=== PATIENT | male | born 1980 | race Caucasian/White ===

== ENCOUNTER 2017-05-13 19:56 | Emergency (ER) | payer OTHER ==
[2017-05-13 20:04] VITALS: BP 119/68
[2017-05-13] MEDS ORDERED: ALBUTEROL NEB 2.5 MG/3 ML INH STA (20:13)
--- NOTE | 2017-05-13 20:14 | ED Physician Documentation ---
PD HPI DYSPNEA - Stated complaint Stated Complaint: COUGH/CONGESTION - Chief complaint Chief Complaint: Resp - History obtained from History obtained from: Patient - History of Present Illness Timing - onset: Other (Sick for 10 days with coughing, Productive of green sputum with low-grade fevers and body aches, also nasal congestion. Feels like prior episodes of pneumonia.) Review of Systems Constitutional: reports: Fever, Chills, Fatigue. denies: Myalgias Nose: reports: Rhinorrhea / runny nose, Congestion Throat: reports: Sore throat Respiratory: reports: Dyspnea, Cough GI: denies: Abdominal Pain PD PAST MEDICAL HISTORY - Past Medical History Past Medical History: Yes Psych: Other Other Past Medical History: TBI - Past Surgical History Past Surgical History: No Neuro: Other - Present Medications Home Medications: Ambulatory Orders Medication Instructions Recorded Confirmed Albuterol Sulfate [Proventil Hfa 1 - 2 puffs IH Q4H PRN #1 05/13/17 Inhaler] hfa.aer.ad guaiFENesin/CODEINE [Robitussin AC] 5 - 10 ml PO Q6H PRN #120 ml 05/13/17 predniSONE [Deltasone] 60 mg PO DAILY 5 Days tablet 05/13/17 - Allergies Allergies/Adverse Reactions: Allergies Allergy/AdvReac Type Severity Reaction Status Date / Time No Known Drug Allergies Allergy Verified 05/13/17 20:01 - Social History Does the pt smoke?: No Smoking Status: Never smoker Does the pt drink ETOH?: Yes Does the pt have substance abuse?: No - Immunizations Immunizations are current?: Yes PD ED PE NORMAL - Vitals Vital signs reviewed: Yes - General General: Alert and oriented X 3, No acute distress - HEENT HEENT: PERRL, EOMI, Ears normal, Moist mucous membranes, Pharynx benign - Neck Neck: Supple, no meningeal sign, No bony TTP - Cardiac Cardiac: RRR, No murmur - Respiratory Respiratory: Other (Significantly diminished throughout, nonlabored) - Abdomen Abdomen: Non tender - Derm Derm: No rash - Psych Psych: Normal mood, Normal affect Results - Vitals Vitals: Vital Signs - 24 hr 05/13/17 05/13/17 20:00 20:20 Temperature 37.4 C Heart Rate 70 70 Respiratory 20 18 Rate Blood Pressure 119/68 O2 Saturation 97 Oxygen O2 Source Room air - Rads (name of study) 2v chest Radiology: EMP read contemporaneously (normal) PD MEDICAL DECISION MAKING - ED course ED course: Healthy 36-year-old gentleman with viral symptoms with Predominant cough for a week, clear chest x-ray. Lungs initially very diminished on examination but improved after albuterol neb here with better air movement and still no focal findings. Departure - Departure Disposition: 01 Home, Self Care Clinical Impression: Viral bronchitis Condition: Good Record reviewed to determine appropriate education?: Yes Instructions: ED Upper Resp Infec No Abx Tx Prescriptions: Albuterol Sulfate [Proventil Hfa Inhaler] 1 - 2 puffs IH Q4H PRN #1 hfa.[email or web address].ad PRN Reason: Cough guaiFENesin/CODEINE [Robitussin AC] 5 - 10 ml PO Q6H PRN #120 ml PRN Reason: Cough predniSONE [Deltasone] 60 mg PO DAILY 5 Days tablet Comments: Call your doctor to arrange a follow-up appointment, make the next available appointment. In the interim, return anytime if worse or if new symptoms develop.
--- NOTE | 2017-05-13 20:36 | XRAY Preliminary Report ---
Exam: XR CHEST 2 VIEW PA/LAT IMPRESSION: No acute intrathoracic plain film abnormality. [facility] SITE ID: [id number]
--- NOTE | 2017-05-13 20:37 | XRAY Report ---
EXAM: CHEST RADIOGRAPHY EXAM DATE: 05/13/2017 08:22 PM. CLINICAL HISTORY: Cough. COMPARISON: None. TECHNIQUE: 2 views. FINDINGS: Lungs/Pleura: No focal opacities evident. No pleural effusion. No pneumothorax. Normal volumes. Mediastinum: Heart and mediastinal contours are unremarkable. Other: None. IMPRESSION: No acute intrathoracic plain film abnormality. [facility] Referring Provider Line: [phone] SITE ID: [id number]
[2017-05-13] MEDS ORDERED: guaiFENesin/CODEINE 5 ML UDC PO STA (20:49)
[2017-05-13] MEDS ORDERED: predniSONE 20 MG TABLET PO STA (20:49)
== END 2017-05-13 20:55 | disposition home or self-care (01) ==
LOC: ED 19:56
DX: J20.8 Acute bronchitis due to other specified organisms (principal)
CPT/HCPCS: 71020; 94640; 99283; 99284; A9270; J7512; J7613

== ENCOUNTER 2019-01-20 10:03 | Emergency (ER) | payer OTHER ==
--- NOTE | 2019-01-20 10:21 | ED Physician Documentation ---
History of Present Illness - Stated complaint Stated Complaint: FEVER - Chief complaint Chief Complaint: Resp - History obtained from History obtained from: Patient, Family - History of Present Illness Timing: How many days ago (4) Pain level max: 6 Pain level now: 0 - Additonal information Additional information: 38-year-old male presents to the emergency department stating that he was diagnosed with pneumonia in [place] on Wednesday. Started on azithromycin and Augmentin. Told he should follow-up within 24 hours. Unable to see his doctor today. Came here for evaluation. He states that his oxygen levels were around 90% when he was in [place]. States he has pneumonia 1-2 times per year. He states that he is feeling much better today. Review of Systems Constitutional: reports: Fever Respiratory: reports: Cough GI: denies: Abdominal Pain, Nausea, Vomiting, Diarrhea Skin: denies: Rash Musculoskeletal: denies: Neck pain, Back pain Neurologic: denies: Headache PD PAST MEDICAL HISTORY - Past Medical History Past Medical History: No Psych: Other - Past Surgical History Past Surgical History: No Neuro: Other - Present Medications Home Medications: Ambulatory Orders Medication Instructions Recorded Confirmed Amox/Clav 875/125 [Augmentin 01/20/19 875/125] Azithromycin 250 mg PO 01/20/19 - Allergies Allergies/Adverse Reactions: Allergies Allergy/AdvReac Type Severity Reaction Status Date / Time No Known Drug Allergies Allergy Verified 01/20/19 10:10 - Social History Does the pt smoke?: No Smoking Status: Never smoker Does the pt drink ETOH?: Yes Does the pt have substance abuse?: No - Immunizations Immunizations are current?: Yes PD ED PE NORMAL - Vitals Vital signs reviewed: Yes - General General: Alert and oriented X 3, No acute distress, Well developed/nourished - HEENT HEENT: Moist mucous membranes - Neck Neck: Supple, no meningeal sign - Cardiac Cardiac: RRR, Strong equal pulses - Respiratory Respiratory: No respiratory distress, Clear bilaterally - Abdomen Abdomen: Soft, Non tender, Non distended - Derm Derm: Warm and dry - Neuro Neuro: Alert and oriented X 3 - Psych Psych: Normal mood, Normal affect Results - Vitals Vitals: Vital Signs - 24 hr 01/20/19 01/20/19 10:06 11:33 Temperature 36.7 C Heart Rate 62 80 Respiratory 20 16 Rate Blood Pressure 111/66 132/74 H O2 Saturation 97 100 Oxygen O2 Source Room air - Rads (name of study) cxr Radiology: Prelim report reviewed, EMP read contemporaneously, See rad report (Bilateral patchy infiltrates. This can be seen in pneumonia, including atypical pneumonia. Follow-up to resolution suggested. ) PD MEDICAL DECISION MAKING - ED course Complexity details: reviewed results, re-evaluated patient, considered differential, d/w patient, d/w family ED course: 38-year-old male with bilateral pneumonia. He is improving on antibiotics. No hypoxia. No respiratory distress. We will continue his current treatment plan and follow-up with his doctor. Patient counseled regarding signs and symptoms for which I believe and urgent re-evaluation would be necessary. Patient with good understanding of and agreement to plan and is comfortable going home at this time This document was made in part using voice recognition software. While efforts are made to proofread this document, sound alike and grammatical errors may occur. Departure - Departure Disposition: 01 Home, Self Care Clinical Impression: Pneumonia Qualifiers: Pneumonia type: due to unspecified organism Laterality: bilateral Lung location: unspecified part of lung Qualified Code(s): J18.9 - Pneumonia, unspecified organism Condition: Good Instructions: ED Pneumonia Adult Follow-Up: Your,doctor in 1 week [Other] Comments: Continue your current medications at home. Return if you worsen. You should have a repeat chest x-ray in 1 week to ensure that the pneumonia is resolving. As this recurs frequently for you, you would likely benefit from a referral to a radiology transporter as well. Discuss this with your doctor. Discharge Date/Time: 01/20/19 11:34
--- NOTE | 2019-01-20 11:20 | XRAY Report ---
Reason: cough Procedure Date: 01/20/2019 Accession Number: [id number] / [id number] Procedure: XR - Chest 2 View X-Ray CPT Code: 67124 FULL RESULT: EXAM: CHEST RADIOGRAPHY EXAM DATE: 01/20/2019 10:53 AM. CLINICAL HISTORY: Cough. COMPARISON: CHEST 2 VIEW PA/LAT 05/13/2017 8:14 PM. TECHNIQUE: 2 views. FINDINGS: Lungs/Pleura: Bilateral patchy infiltrates, most predominant in the right middle lobe. No pleural fluid collections. Mediastinum: Heart and mediastinal contours are unremarkable. Other: None. IMPRESSION: Bilateral patchy infiltrates. This can be seen in pneumonia, including atypical pneumonia. Follow-up to resolution suggested. [facility]
[2019-01-20 11:34] VITALS: BP 132/74
== END 2019-01-20 11:34 | disposition home or self-care (01) ==
LOC: ED 10:03
DX: J18.1 Lobar pneumonia, unspecified organism (principal)
CPT/HCPCS: 71046; 99283